=== PATIENT | female | born 1945 | race Asian ===

== ENCOUNTER 2017-05-19 18:37 | Emergency (ER) | payer MEDICARE, OTHER ==
[~2017-05-19] VITALS: Ht 157.5 cm; Wt 70.5 kg
[~2017-05-19 18:37] MED LIST: ALEN35TA32 PO; APIX5TAB PO; ATOR40TA28 PO; CALC-895 PO; METO25 PO
[2017-05-19] MEDS: ACETAMINOPHEN 500 MG TABLET PO ONE (19:38)
[2017-05-19 20:02] LABS: APPEARANCE,URINE CLEAR (CLEAR); BILIRUBIN,URINE NEGATIVE (NEGATIVE); GLUCOSE, URINE (UA) NEGATIVE (NEGATIVE); KETONES,URINE NEGATIVE (NEGATIVE); LEUKOCYTE ESTERASE ,URINE TRACE (NEGATIVE); NITRATE,URINE NEGATIVE (NEGATIVE); OCCULT BLOOD,URINE LARGE (NEGATIVE); PROTEIN,URINE TRACE (NEGATIVE); UROBILINOGEN,URINE 0.2 mg/dL (<=1.0)
[2017-05-19 20:27] LABS: BASOPHILS % (AUTO) 0.6 % (0.0-2.0); EOSINOPHILS % (AUTO) 0.6 % (1.0-6.0); HEMATOCRIT 40.4 % (36-46); HEMOGLOBIN 13.8 g/dL (12.0-16.0); LYMPHOCYTES % (AUTO) 11.2 % (22.0-44.0); MEAN CORPUSCULAR HEMOGLOBIN 29.8 pg (26.0-34.0); MEAN CORPUSCULAR HGB CONC 34.1 G/dL (31.0-37.0); MEAN CORPUSCULAR VOLUME 87 fL (80-100); MONOCYTES # (AUTO) 0.7 K/uL (0.1-1.0); MONOCYTES % (AUTO) 8.2 % (2.0-9.0); NEUTROPHILS # (AUTO) 7.2 K/uL (1.8-7.7); NEUTROPHILS % (AUTO) 79.4 % (40.0-70.0); PLATELET COUNT (AUTO) 200 K/uL (150-450); RED BLOOD CELL COUNT(AUTO) 4.62 MIL/uL (4.00-5.20); RED CELL DISTRIBUTION WIDTH 13.4 % (11.5-14.5)
[2017-05-19 20:36] LABS: ANION GAP 10 mmol/L (8-16); CARBON DIOXIDE 26 mmol/L (22-29); CHLORIDE 102 mmol/L (98-107); GLOMERULAR FILTR. RATE CALC > 60 mL/min (>60); GLUCOSE,RANDOM 126 mg/dL (70-110); POTASSIUM 3.6 mmol/L (3.5-5.1); SODIUM SERUM 138 mmol/L (136-145); UREA NITROGEN, BLOOD 14 mg/dL (7-18)
[2017-05-19 20:42] LABS: ALANINE AMINOTRANSFERASE 40 U/L (12-78); ALBUMIN 3.9 g/dL (3.4-5.0); ALKALINE PHOSPHATASE 99 U/L (46-116); ASPARTATE AMINOTRANSFERASE 27 U/L (15-37); BILIRUBIN,TOTAL 0.8 mg/dL (0.1-1.0); TOTAL PROTEIN, SERUM 8.2 g/dL (6.4-8.2)
[2017-05-19 20:45] LABS: LACTIC ACID 1.8 mmol/L (0.4-2.0)
[2017-05-19 20:46] LABS: BACTERIA,URINE Few /HPF (None Seen)
[2017-05-19 20:47] LABS: MUCUS,URINE Rare LPF (None Seen); SQUAMOUS EPITHELIAL CELL,UR Rare /LPF (None Seen)
[2017-05-19 21:40] LABS: INFLUENZA TYPE A NEGATIVE FOR TYPE A (NEGATIVE); INFLUENZA TYPE B NEGATIVE FOR TYPE B (NEGATIVE)
[2017-05-19 23:00] VITALS: BP 132/72
== END 2017-05-19 23:19 | disposition home or self-care (01) ==
LOC: EMS 18:38
DX: N39.0 Urinary tract infection, site not specified (principal); E78.00 Pure hypercholesterolemia, unspecified; I10 Essential (primary) hypertension; R42 Dizziness and giddiness
CPT/HCPCS: 83605; 87086; 87804; 93005; 99285

== ENCOUNTER 2017-09-14 14:36 | Emergency (ER) | payer MEDICARE, OTHER ==
[~2017-09-14] VITALS: Ht 157.5 cm; Wt 68.2 kg
[2017-09-14] MEDS ORDERED: AMLO2.5T PO (14:59)
[2017-09-14 16:15] LABS: BASOPHILS % (AUTO) 0.6 % (0.0-2.0); EOSINOPHILS % (AUTO) 0.1 % (1.0-6.0); HEMATOCRIT 37.9 % (36-46); HEMOGLOBIN 13.1 g/dL (12.0-16.0); LYMPHOCYTES # (AUTO) 1.3 K/uL (1.0-4.8); LYMPHOCYTES % (AUTO) 9.4 % (22.0-44.0); MEAN CORPUSCULAR HEMOGLOBIN 30.1 pg (26.0-34.0); MEAN CORPUSCULAR HGB CONC 34.5 G/dL (31.0-37.0); MEAN CORPUSCULAR VOLUME 88 fL (80-100); MONOCYTES # (AUTO) 0.9 K/uL (0.1-1.0); MONOCYTES % (AUTO) 6.6 % (2.0-9.0); NEUTROPHILS # (AUTO) 11.3 K/uL (1.8-7.7); NEUTROPHILS % (AUTO) 83.3 % (40.0-70.0); PLATELET COUNT (AUTO) 210 K/uL (150-450); RED BLOOD CELL COUNT(AUTO) 4.33 MIL/uL (4.00-5.20); RED CELL DISTRIBUTION WIDTH 13.8 % (11.5-14.5)
[2017-09-14 16:23] LABS: APPEARANCE,URINE CLOUDY (CLEAR); GLUCOSE, URINE (UA) NEGATIVE (NEGATIVE); KETONES,URINE TRACE mg/dL (NEGATIVE); LEUKOCYTE ESTERASE ,URINE MODERATE (NEGATIVE); NITRATE,URINE POSITIVE (NEGATIVE); OCCULT BLOOD,URINE LARGE (NEGATIVE); PH,URINE 5.5 (5.0-8.0); PROTEIN,URINE POS 1+ (NEGATIVE); UROBILINOGEN,URINE 0.2 mg/dL (<=1.0)
[2017-09-14 16:25] LABS: CALCIUM, TOTAL 8.7 mg/dL (8.8-10.5); CREATININE 0.98 mg/dL (0.60-1.30); POTASSIUM 3.5 mmol/L (3.5-5.1)
[2017-09-14 16:30] LABS: BILIRUBIN,URINE PRELIM. POSITIVE (NEGATIVE)
[2017-09-14 16:30] LABS: ALBUMIN 3.6 g/dL (3.4-5.0); BILIRUBIN,TOTAL 0.7 mg/dL (0.1-1.0); TOTAL PROTEIN, SERUM 7.9 g/dL (6.4-8.2)
[2017-09-14 16:48] LABS: WBC,URINE 26-50 /HPF (0-5)
[2017-09-14 16:49] LABS: BACTERIA,URINE Many /HPF (None Seen); SQUAMOUS EPITHELIAL CELL,UR Few /LPF (None Seen)
[2017-09-14] MEDS ORDERED: CefTRIAXone SODIUM 1 GM in DEXTROSE 5%-WATER 10 ML IV ONE (18:00)
[2017-09-14 18:51] VITALS: BP 106/57
== END 2017-09-14 19:01 | disposition home or self-care (01) ==
LOC: EMS 14:37
DX: N39.0 Urinary tract infection, site not specified (principal); E78.00 Pure hypercholesterolemia, unspecified; I10 Essential (primary) hypertension; Z88.1 Allergy status to other antibiotic agents; Z88.0 Allergy status to penicillin
CPT/HCPCS: 36415; 80053; 81001; 85025; 87086; 96365; 99285; J0696; J7060

== ENCOUNTER 2018-07-26 20:10 | Inpatient (IN) | payer MEDICARE, OTHER ==
[~2018-07-26] VITALS: Ht 157.5 cm; Wt 70.4 kg
[~2018-07-26 20:10] MED LIST changes: -ALEN35TA32 PO; +AMLO2.5T4 PO; -CALC-895 PO; -METO25 PO; +METO25XL PO
[2018-07-26 22:22] LABS: EOSINOPHILS % (AUTO) 3.1 % (1.0-6.0); HEMATOCRIT 43.8 % (36-46); HEMOGLOBIN 14.7 g/dL (12.0-16.0); LYMPHOCYTES # (AUTO) 2.8 K/uL (1.0-4.8); LYMPHOCYTES % (AUTO) 32.7 % (22.0-44.0); MEAN CORPUSCULAR HEMOGLOBIN 29.3 pg (26.0-34.0); MEAN CORPUSCULAR HGB CONC 33.6 G/dL (31.0-37.0); MEAN CORPUSCULAR VOLUME 87 fL (80-100); MONOCYTES # (AUTO) 0.8 K/uL (0.1-1.0); MONOCYTES % (AUTO) 9.1 % (2.0-9.0); NEUTROPHILS # (AUTO) 4.7 K/uL (1.8-7.7); NEUTROPHILS % (AUTO) 54.1 % (40.0-70.0); PLATELET COUNT (AUTO) 280 K/uL (150-450); RED BLOOD CELL COUNT(AUTO) 5.02 MIL/uL (4.00-5.20); RED CELL DISTRIBUTION WIDTH 13.4 % (11.5-14.5)
[2018-07-26 22:32] LABS: CALCIUM, TOTAL 9.7 mg/dL (8.8-10.5); CREATININE 0.97 mg/dL (0.60-1.30); POTASSIUM 3.5 mmol/L (3.5-5.1)
[2018-07-26 22:39] LABS: ALBUMIN 4.1 g/dL (3.4-5.0); BILIRUBIN,TOTAL 0.4 mg/dL (0.1-1.0); TOTAL PROTEIN, SERUM 8.2 g/dL (6.4-8.2)
[2018-07-26] MEDS ORDERED: ASPIRIN 81 MG CHEWABLE TABLET PO ONE (22:45)
[2018-07-26] MEDS ORDERED: DILTIAZEM HCL 5 MG/ML 5 ML VIAL IVP ONE (22:45)
[2018-07-26] MEDS ORDERED: ACETAMINOPHEN 325 MG TABLET PO PRN (23:30)
[2018-07-26] MEDS ORDERED: 0.9% SODIUM CHLORIDE 10 ML SYRINGE IVP PRN (23:30)
[2018-07-26] MEDS ORDERED: ONDANSETRON HCL 4 MG/2 ML VIAL IVP PRN (23:30)
[2018-07-27] MEDS ORDERED: 0.9% SODIUM CHLORIDE 10 ML SYRINGE IVP PRN
[2018-07-27] MEDS ORDERED: TraMADol HCL 50 MG TABLET PO PRN
[2018-07-27] MEDS ORDERED: ACETAMINOPHEN 325 MG TABLET PO PRN
[2018-07-27] MEDS ORDERED: ONDANSETRON HCL 4 MG/2 ML VIAL IVP PRN
[2018-07-27] MEDS ORDERED: MAGNESIUM HYDROXIDE SUSPENSION 30 ML UDCUP PO PRN
[2018-07-27] MEDS ORDERED: MORPHINE SULFATE 4 MG/ML SYRINGE IVP PRN
[2018-07-27] MEDS ORDERED: DOCUSATE SODIUM 100 MG CAPSULE PO PRN
[2018-07-27] MEDS ORDERED: BISACODYL 10 MG RECTAL RECTAL SUPPOSITORY PR PRN
[2018-07-27 00:57] VITALS: BP 140/84
[2018-07-27 04:28] VITALS: BP 103/54
[2018-07-27 05:26] LABS: BASOPHILS % (AUTO) 0.9 % (0.0-2.0); EOSINOPHILS % (AUTO) 3.2 % (1.0-6.0); HEMATOCRIT 42.8 % (36-46); LYMPHOCYTES # (AUTO) 3.4 K/uL (1.0-4.8); MEAN CORPUSCULAR HEMOGLOBIN 29.1 pg (26.0-34.0); MEAN CORPUSCULAR HGB CONC 32.7 G/dL (31.0-37.0); MEAN CORPUSCULAR VOLUME 89 fL (80-100); MONOCYTES # (AUTO) 0.6 K/uL (0.1-1.0); NEUTROPHILS # (AUTO) 3.8 K/uL (1.8-7.7); NEUTROPHILS % (AUTO) 46.9 % (40.0-70.0); PLATELET COUNT (AUTO) 265 K/uL (150-450); RED BLOOD CELL COUNT(AUTO) 4.81 MIL/uL (4.00-5.20); RED CELL DISTRIBUTION WIDTH 13.5 % (11.5-14.5)
[2018-07-27 05:48] LABS: CALCIUM, TOTAL 9.1 mg/dL (8.8-10.5); CHOL/HDL RATIO 3.7 (3.9-5.7); CREATININE 0.99 mg/dL (0.60-1.30); FREE T4 (FREE THYROXINE) 0.97 ng/dL (0.76-1.46); POTASSIUM 4.1 mmol/L (3.5-5.1); THYROID STIMULATING HORMONE 4.12 uIU/mL (0.36-3.74)
[2018-07-27 07:36] VITALS: BP 105/61
[2018-07-27] MEDS ORDERED: AmLODIPine BESYLATE 2.5 MG TABLET PO SCH (09:00)
[2018-07-27] MEDS ORDERED: APIXABAN 5 MG TABLET PO SCH (09:00)
[2018-07-27] MEDS ORDERED: ATORVASTATIN CALCIUM 40 MG TABLET PO SCH ×2 (09:00→21:00)
[2018-07-27] MEDS ORDERED: FAMOTIDINE 20 MG TABLET PO SCH (09:00)
[2018-07-27] MEDS ORDERED: METOPROLOL SUCCINATE 25 MG ER TABLET PO SCH (09:00)
[2018-07-27 11:32] VITALS: BP 113/56
[2018-07-27 15:32] VITALS: BP 136/81
== END 2018-07-27 16:30 | disposition home or self-care (01) | DRG 303 ==
LOC: EMS 20:14 → 5S 23:00
PROVIDERS: ADMIT Internal Medicine; ATTEND Internal Medicine
DX: I25.110 Atherosclerotic heart disease of native coronary artery with unstable angina pectoris (principal); I48.91 Unspecified atrial fibrillation; I10 Essential (primary) hypertension; E78.5 Hyperlipidemia, unspecified; E78.00 Pure hypercholesterolemia, unspecified; Z79.899 Other long term (current) drug therapy; Z79.01 Long term (current) use of anticoagulants; Z88.1 Allergy status to other antibiotic agents; Z88.8 Allergy status to other drugs, medicaments and biological substances; Z98.51 Tubal ligation status
CPT/HCPCS: 83735; 84439; 84443; 93005; 93306; 96374; G0378; J3490

== ENCOUNTER → 2018-07-28 | Outpatient (CLI) | payer MEDICARE, OTHER ==
[~2018-07-28] MED LIST changes: +REGADENOSON 0.4 MG/5 ML PF SYRINGE IVP ONE; +SESTAMIBI TC99M/UD ISOTOPE 1 EA INJ INJ ONE
[2018-07-28 09:00] VITALS: BP 143/82
[2018-07-28 09:48] VITALS: BP 124/71
== END | disposition home or self-care (01) ==
LOC: CARDMN 08:54
PROVIDERS: ATTEND Internal Medicine Cardiovascular Disease
DX: R07.9 Chest pain, unspecified (principal); I25.10 Atherosclerotic heart disease of native coronary artery without angina pectoris
CPT/HCPCS: 78452; 93017; A9500; J2785

== ENCOUNTER 2022-10-18 15:06 | Emergency (ER) | payer MEDICARE, OTHER ==
[~2022-10-18] VITALS: Ht 153 cm; Wt 68.2 kg
[~2022-10-18 15:06] MED LIST changes: -AMLO2.5T4 PO; +AMLO2.5T96 PO; -REGADENOSON 0.4 MG/5 ML PF SYRINGE IVP ONE; -SESTAMIBI TC99M/UD ISOTOPE 1 EA INJ INJ ONE
[2022-10-18] MEDS ORDERED: ACET-2247 PO (15:14)
[2022-10-18 15:16] VITALS: TEMP 97.6
[2022-10-18] MEDS ORDERED: ACETAMINOPHEN/CODEINE 300-30 MG TABLET PO ONE (15:45)
[2022-10-18] MEDS ORDERED: ACET-2080 PO ×2 (19:20→19:32)
[2022-10-18 20:05] VITALS: BP 127/65; PULSE 57; RESP 18
== END 2022-10-18 20:42 | disposition home or self-care (01) ==
LOC: EMS 15:06
DX: S82.002A Unspecified fracture of left patella, initial encounter for closed fracture (principal); I48.91 Unspecified atrial fibrillation; E78.00 Pure hypercholesterolemia, unspecified; I10 Essential (primary) hypertension; Z98.51 Tubal ligation status; Z88.8 Allergy status to other drugs, medicaments and biological substances; W18.39XA Other fall on same level, initial encounter; Y93.89 Activity, other specified; Y92.89 Other specified places as the place of occurrence of the external cause; Y99.8 Other external cause status
CPT/HCPCS: 29505; 99283